=== PATIENT | male | born 2000 | race Two or more races ===

== ENCOUNTER 2023-02-02 20:11 | Emergency (ER) | payer OTHER ==
[~2023-02-02] VITALS: Ht 182.9 cm; Wt 122.0 kg
[2023-02-03] MEDS ORDERED: IBUP-1456 PO (02:06)
[2023-02-03] MEDS ORDERED: KETOROLAC TROMETH 60MG/2ML VIAL IM ONE (02:15)
[2023-02-03 02:47] VITALS: BP 138/85
== END 2023-02-03 02:50 | disposition home or self-care (01) ==
LOC: ER 20:11
DX: G44.209 Tension-type headache, unspecified, not intractable (principal); F41.9 Anxiety disorder, unspecified; F12.90 Cannabis use, unspecified, uncomplicated
CPT/HCPCS: 93005; 96372; 99283; J1885